=== PATIENT | female | born 1995 | race Caucasian/White ===

== ENCOUNTER 2016-12-27 12:22 | Inpatient (IN) | payer OTHER ==
[2016-12-27 12:49] VITALS: BMI 23.3
--- NOTE | 2016-12-27 13:37 | HP ---
COWS - Scale Resting Pulse: 1= MS 81-100 Sweatin= Chills/Flushing Restless Observation: 1= Difficult to Sit Still Pupil Size: 0= Normal to Room Light Bone or Joint Aches: 2= Severe Diffuse Aches Runny Nose/ Eye Tearin= Runny Nose/Eyes GI Upset > 30mins: 2= Nausea/Diarrhea Tremor Observation: 2= Slight Tremor Visible Yawning Observation: 1= 1-2x During Session Anxiety or Irritability: 2=Irritable/Anxious Goose Flesh Skin: 3=Piloerection COWS Score: 17 Admission ROS S - HPI Chief Complaint: "Getting high has taken a hold of my life and I cannot manage it anymore." Allergies/Adverse Reactions: Allergies Allergy/AdvReac Type Severity Reaction Status Date / Time No Known Allergies Allergy Verified 12/27/16 13:31 History of Present Illness: Pt. is a 21 YO female here to Detox from Heroin. This is her first Detox admission at [facility]. Pt. also reports using Cocaine on a daily basis and using both Alcohol and Xanax several days per week. Exam Limitations: No Limitations - Ebola screening Have you traveled outside of the country in the last 21 days: No Have you had contact with anyone from an Ebola affected area: No Have you been sick,other than usual withdrawal symptoms: No Do you have a fever: No - Review of Systems Constitutional: Chills, Diaphoresis, Fever, Loss of Appetite, Malaise, Night Sweats, Changes in sleep EENT: reports: Tearing, Nose Congestion, Sinus Pressure Respiratory: reports: No Symptoms reported Cardiac: reports: Palpitations, Syncope (Last Occurrence: 07/2016.) GI: reports: Constipated, Nausea, Poor Appetite : reports: Other (Pt. reports passing 3 Kidney stones 3-4 weeks ago. She denies any current Urinary symptoms.) Musculoskeletal: reports: Back Pain, Joint Pain, Muscle Pain, Joint Stiffness Integumentary: reports: Other (Track klein on bilateral forearms.) Neuro: reports: Headache, Numbness, Seizure (Due to withdrawal; Last one: 2015.), Tingling, Tremors Endocrine: reports: No Symptoms Reported Hematology: reports: No Symptoms Reported Psychiatric: reports: Judgement Intact, Mood/Affect Appropiate, Orientated x3, Anxious, Depressed Other Systems: Reviewed and Negative Patient History - Patient Medical History Hx Anemia: No Hx Asthma: No Hx Chronic Obstructive Pulmonary Disease (COPD): No Hx Cancer: No Hx Cardiac Disorders: No Hx Congestive Heart Failure: No Hx Hypertension: No Hx Hypercholesterolemia: No Hx Pacemaker: No HX Cerebrovascular Accident: No Hx Seizures: Yes (Due to Withdrawal; Last One: 06/2016.) Hx Dementia: No Hx Diabetes: No Hx Gastrointestinal Disorders: No Hx Liver Disease: No Hx Genitourinary Disorders: Yes (PCOS.) Hx Sexually Transmitted Disorders: No Hx Renal Disease (ESRD): No (Passed 3 Kidney Stones 3-4 weeks ago.) Hx Thyroid Disease: No Hx Human Immunodeficiency Virus (HIV): No (Last Tested in 10/2016: NEGATIVE.) Hx Hepatitis C: No (Last Tested:05/2016: NEGATIVE.) Hx Depression: Yes (History of meds; stopped taking approx. 1 year ago.) Hx Suicide Attempt: No (PATIENT DENIES CURRENT SI / HI.) Hx Bipolar Disorder: No Hx Schizophrenia: No Other Medical History: Took Keppra for approx. 3 months after last seizure, then stopped by MD. - Patient Surgical History Past Surgical History: No Hx Neurologic Surgery: No Hx Cataract Extraction: No Hx Cardiac Surgery: No Hx Lung Surgery: No Hx Breast Surgery: No Hx Breast Biopsy: No Hx Abdominal Surgery: No Hx Appendectomy: No Hx Cholecystectomy: No Hx Genitourinary Surgery: No Hx Section: No Hx Orthopedic Surgery: No Hx Hysterectomy: No Anesthesia Reaction: No - PPD History Previous Implant?: Yes Documented Results: Negative w/o proof Implanted On Prior R Admission?: No PPD to be Administered?: Yes - Reproductive History Patient is a Female of Child Bearing Age (11 -55 yrs old): Yes Last Menstrual Period: 12/06/16 (History of PCOS.) Patient : No - Smoking Cessation Smoking history: Current every day smoker Have you smoked in the past 12 months: Yes Aproximately how many cigarettes per day: 20 Cigars Per Day: 0 Hx Chewing Tobacco Use: No Initiated information on smoking cessation: Yes 'Breaking Loose' booklet given: 12/27/16 (GIVEN ON UNIT.) - Substance & Tx. History Hx Alcohol Use: Yes (Approx. 4-5 days / week.) Hx Substance Use: Yes Substance Use Type: Cocaine, Heroin, Tranquilizers Hx Substance Use Treatment: Yes (Previous Detox admissions (None at [facility]).) - Substances Abused Heroin Route: Injection Frequency: Daily Amount used: 16 BAGS. Age of first use: 19 Date of Last Use: 12/26/16 Cocaine Route: Injection Frequency: 3-6 times per week Amount used: $ 80. Age of first use: 16 Date of Last Use: 12/25/16 Alprazolam (Xanax) Route: Oral Frequency: 3-6 times per week Amount used: 8 MG Age of first use: 15 Date of Last Use: 12/25/16 Family Disease History - Family Disease History Family History: Denies Admission Physical Exam [facility] - Vital Signs Vital Signs: Vital Signs - 24 hr 12/27/16 12:46 Temperature 98.3 F Pulse Rate 93 H Respiratory 16 Rate Blood Pressure 122/74 - Physical General Appearance: Yes: No Apparent Distress, Nourished, Appropriately Dressed , Tremorous, Anxious HEENTM: Yes: Hearing grossly Normal, Normocephalic, Normal Voice, LORA, Pharynx Normal Respiratory: Yes: Chest Non-Tender, Lungs Clear, Normal Breath Sounds, No Respiratory Distress Neck: Yes: No masses,lesions,Nodules Breast: Yes: Breast Exam Deferred Cardiology: Yes: Regular Rhythm, Regular Rate, S1, S2 Abdominal: Yes: Normal Bowel Sounds, Non Tender, Flat, Soft Genitourinary: Yes: Within Normal Limits Back: Yes: Normal Inspection Musculoskeletal: Yes: full range of Motion, Gait Steady Extremities: Yes: Normal Range of Motion, Non-Tender, Tremors Neurological: Yes: Fully Oriented, Alert, Normal Mood/Affect, Normal Response Integumentary: Yes: Normal Color, Dry, Warm, Track Klein (Present on Bilateral Forearms. 1 Track eb on Left Forearm scabbed and another Track Eb on Left forearm appears slightly swollen (localized, approx. 1/4 inch in diamter). Pt. denies any pain or tenderness at affected sites or anywhere in forearms or hands.) Lymphatic: Yes: Within Normal Limits - Diagnostic (1) Opioid dependence with withdrawal Current Visit: Yes Status: Acute (2) Nicotine dependence Current Visit: Yes Status: Chronic Qualifiers: Nicotine product type: cigarettes Substance use status: uncomplicated Qualified Code(s): F17.210 - Nicotine dependence, cigarettes, uncomplicated (3) Cocaine dependence, uncomplicated Current Visit: Yes Status: Acute (4) Sedative/hypnotic withdrawal without complication Current Visit: Yes Status: Acute (5) Alcohol use Current Visit: Yes Status: Acute Cleared for Admission S - Detox or Rehab [facility] Level of Care: Medically Managed (ADVISED PATIENT TO FOLLOW-UP WITH SCHOOL LUNCH MONITOR / REHAB MEDICAL PROVIDER AFTER DISCHARGE FROM DETOX FOR GENERAL MEDICAL ASSESSMENT.) Detox Regimen/Protocol: Methadone/Valium S Breath Alcohol Content Breath Alcohol Content: 0 Urine Pregancy Test - Result Urine Test Results: Negative- NO Line Present Urine Drug Screen - Results Drug Screen Negative: No Urine Drug Screen Results: MICHELE-Cocaine, OPI-Opiates, MDMA-Ecstasy, BZO- Benzodiazepines, OXY-Oxycodone
[2016-12-27] MEDS ORDERED: MAGNESIUM CITRATE 300 ML BOTTLE PO PRN (14:39)
[2016-12-27] MEDS ORDERED: MENTHOL/PHENOL 1 EACH UD MM PRN (14:39)
[2016-12-27] MEDS ORDERED: NICOTINE POLACRILEX 2 MG GUM BC PRN (14:39)
[2016-12-27] MEDS ORDERED: ACETAMINOPHEN 325 MG TABLET (FP) PO PRN (14:39)
[2016-12-27] MEDS ORDERED: METHADONE HCL 10 MG TABLET (FOR DETOX USE ONLY) PO ONE ×2 (14:39→23:00)
[2016-12-27] MEDS ORDERED: MAG HYDROX/AL HYDROX/SIMETH 30 ML UNIT-DOSE CUP PO PRN (14:39)
[2016-12-27] MEDS ORDERED: MAGNESIUM HYDROX 2400MG/30ML ORAL SUSPENSION 30 ML CUP PO PRN (14:39)
[2016-12-27] MEDS ORDERED: P-EPHED 60MG/TRIPROLIDI 2.5MG TABLET PO PRN (14:39)
[2016-12-27] MEDS ORDERED: diazePAM 5 MG TABLET PO ONE (14:39)
[2016-12-27] MEDS ORDERED: guaiFENesin/D-METHORPHAN HB 10 ML UNIT-DOSE CUPS PO PRN (14:39)
[2016-12-27] MEDS ORDERED: IBUPROFEN 400 MG TABLET (FP) PO PRN (14:39)
[2016-12-27] MEDS ORDERED: LOPERAMIDE HCL 2 MG CAPSULE PO PRN (14:39)
[2016-12-27] MEDS: hydrOXYzine PAMOATE 50 MG CAPSULE (FP) PO PRN (15:24)
[2016-12-27] MEDS: NICOTINE 21 MG/24 HOURS TOPICAL PATCH TD SCH (15:28)
[2016-12-27] MEDS: BACITRACIN 30 GM TUBE TOPICAL OINTMENT TP SCH ×2 (17:35→22:17)
[2016-12-27] MEDS: CYCLOBENZAPRINE HCL 10 MG TABLET (FP) PO PRN ×2 (17:48→22:18)
[2016-12-27 19:21] LABS: URINE APPEARANCE CLOUDY; URINE BILIRUBIN NEGATIVE (NEGATIVE); URINE BLOOD NEGATIVE (NEGATIVE); URINE COLOR YELLOW; URINE GLUCOSE (UA) NEGATIVE (NEGATIVE); URINE KETONE NEGATIVE (NEGATIVE); URINE NITRITE NEGATIVE (NEGATIVE); URINE PROTEIN NEGATIVE (NEGATIVE); URINE UROBILINOGEN NEGATIVE E.U./dl (0.2-1.0)
[2016-12-27 19:42] LABS: URINE LEUK ESTERASE TRACE (NEGATIVE)
[2016-12-27 19:44] LABS: URINE MUCUS MANY; URINE RBC 1 /hpf (0-3); URINE WBC 13 /hpf (3-5)
[2016-12-27] MEDS: diazePAM 5 MG TABLET PO SCH (22:18)
[2016-12-27] MEDS: THIAMINE HCL 100 MG TABLET (FP) PO SCH (22:18)
[2016-12-27] MEDS: diphenhydrAMINE HCL 50 MG CAPSULE PO PRN (22:18)
[2016-12-28] MEDS: diazePAM 5 MG TABLET PO SCH ×3 (05:56→22:30)
--- NOTE | 2016-12-28 09:37 | CONSULT ---
[facility] Psychiatric Consult - Data Date of interview: 12/28/16 Admission source: [facility] Identifying data: This is 21 years old female with history of no psychiatric hospitalizations intoxicated with : Alcohol, Heroin, Cocaine and Nicoptine, Xanax Substance Abuse History: - Smoking Cessation. Smoking history: Current every day smoker. Have you smoked in the past 12 months: Yes. Aproximately how many cigarettes per day: 20. Cigars Per Day: 0. Hx Chewing Tobacco Use: No. Initiated information on smoking cessation: Yes. 'Breaking Loose' booklet given : 12/27/16 (GIVEN ON UNIT.). - Substance & Tx. History. Hx Alcohol Use: Yes ( Approx. 4-5 days / week.). Hx Substance Use: Yes. Substance Use Type: Cocaine , Heroin, Tranquilizers. Hx Substance Use Treatment: Yes (Previous Detox admissions (None at [facility]).). - Substances Abused. Heroin. Route: Injection. Frequency: Daily. Amount used: 16 BAGS. Age of first use: 19. Date of Last Use: 12/26/16. Cocaine. Route: Injection. Frequency: 3-6 times per week. Amount used: $ 80. Age of first use: 16. Date of Last Use: . Alprazolam (Xanax). Route: Oral. Frequency: 3-6 times per week. Amount used: 8 MG. Age of first use: 15. Date of Last Use: 12/25/16 Medical History: Denies Psychiatric History: Denies Physical/Sexual Abuse/Trauma History: Denies Additional Comment: Observation. Detox Unit Care Protocol Mental Status Exam - Mental Status Exam Alert and Oriented to: Person Cognitive Function: Fair Patient Appearance: Unkempt Mood: Sad Affect: Flat Patient Behavior: Sedated Speech Pattern: Delayed Voice Loudness: Mildly Soft/Quiet Thought Process: Circumstantial Thought Disorder: Being Controlled Hallucinations: Denies Suicidal Ideation: Denies Homicidal Ideation: Denies Insight/Judgement: Fair Sleep: Difficulty falling asleep Appetite: Fair Muscle strength/Tone: Mild Hypotonicity Gait/Station: Shuffling Additional Comments: Observation. Detox Unit Care Protocol Psychiatric Findings - Problem List ([place] 1, 2,3) (1) Alcohol use Current Visit: Yes Status: Acute (2) Cocaine dependence, uncomplicated Current Visit: Yes Status: Acute (3) Opioid dependence with withdrawal Current Visit: Yes Status: Acute (4) Sedative/hypnotic withdrawal without complication Current Visit: Yes Status: Acute (5) Nicotine dependence Current Visit: Yes Status: Chronic Qualifiers: Nicotine product type: cigarettes Substance use status: uncomplicated Qualified Code(s): F17.210 - Nicotine dependence, cigarettes, uncomplicated (6) Drug-induced mood disorder Current Visit: Yes Status: Acute - Initial Treatment Plan Initial Treatment Plan: Observation. Detox Unit Care Protocol
[2016-12-28 09:45] LABS: MCH 27.1 pg (25.7-33.7); MCHC 32.8 g/dl (32.0-36.0); MEAN CELL VOLUME 82.7 fl (80-96); MEAN PLT VOLUME 9.2 fl (7.5-11.1); PLATELET COUNT 233 K/MM3 (134-434); RDW 14.5 % (11.6-15.6); WHITE BLOOD COUNT 6.1 K/mm3 (4.0-10.0)
[2016-12-28] MEDS ORDERED: METHADONE HCL 10 MG TABLET (FOR DETOX USE ONLY) PO SCH (10:00)
[2016-12-28 10:15] LABS: ALBUMIN 3.3 g/dl (3.4-5.0); ALK PHOS 94 U/L (45-117); ANION GAP 8 (8-16); BILIRUBIN,TOTAL 0.3 mg/dL (0.2-1.0); CALCIUM 9.5 mg/dL (8.5-10.1); CO2 27 mmol/L (21-32); CREATININE 0.9 mg/dL (0.55-1.02); GLUCOSE,RANDOM 85 mg/dL (74-106); SGOT/AST 14 U/L (15-37); SGPT/ALT 17 U/L (12-78); TOT PROT 6.7 g/dl (6.4-8.2)
--- NOTE | 2016-12-28 10:28 | EKG ---
Test Reason : Blood Pressure : / mmHG Vent. Rate : 084 BPM Atrial Rate : 084 BPM P-R Int : 170 ms QRS Dur : 082 ms QT Int : 374 ms P-R-T Axes : 036 053 035 degrees QTc Int : 441 ms NORMAL SINUS RHYTHM NORMAL ECG NO PREVIOUS ECGS AVAILABLE Confirmed by ROXIE SCHAEFFER MD ([id number]) on 12/28/2016 10:27:43 AM Referred By: Confirmed By:ROXIE SCHAEFFER MD
[2016-12-28] MEDS: PRENATAL VITAMINS W/ FOLIC ACID TABLET (FP) PO SCH (10:29)
[2016-12-28] MEDS: BACITRACIN 30 GM TUBE TOPICAL OINTMENT TP SCH ×4 (10:29→22:30)
[2016-12-28] MEDS: NICOTINE 21 MG/24 HOURS TOPICAL PATCH TD SCH (10:30)
[2016-12-28] MEDS: CYCLOBENZAPRINE HCL 10 MG TABLET (FP) PO PRN ×3 (10:33→22:30)
[2016-12-28] MEDS: diazePAM 5 MG TABLET PO PRN (10:33)
--- NOTE | 2016-12-28 11:36 | PN ---
[facility] CIWA - CIWA Score Nausea/Vomitin Muscle Tremors: 4-Moderate,w/Arms Extend Anxiety: 4-Mod. Anxious/Guarded Agitation: 4-Moderately Restless Paroxysmal Sweats: 3 Orientation: 0-Oriented Tacttile Disturbances: 0-None Auditory Disturbances: 0-None Visual Disturbances: 0-None Headache: 0-None Present CIWA-Ar Total Score: 18 BHS COWS - Scale Resting Pulse: 1= SC 81-100 Sweatin= Chills/Flushing Restless Observation: 1= Difficult to Sit Still Pupil Size: 1= Pupils >than Normal Bone or Joint Aches: 1= Mild Discomfort Runny Nose/ Eye Tearin= Nasal Congestion GI Upset > 30mins: 2= Nausea/Diarrhea Tremor Observation of Outstretched Hands: 2= Slight Tremor Visible Yawning Observation: 1= 1-2x During Session Anxiety or Irritability: 2=Irritable/Anxious Goose Flesh Skin: 3=Piloerection COWS Score: 16 S Progress Note (SOAP) Subjective: nausea, sweats, interrupted sleep, anxiety, tremor Objective: 12/28/16 11:35 Vital Signs - 8 hr 12/28/16 12/28/16 05:07 10:27 Temperature 97.9 F 98.2 F Pulse Rate 82 93 H Respiratory 16 18 Rate Blood Pressure 110/70 108/58 Laboratory Tests 12/27/16 12/28/16 12/28/16 18:50 06:30 06:30 WBC 6.1 RBC 4.59 Hgb 12.5 Hct 37.9 MCV 82.7 MCHC 32.8 RDW 14.5 Plt Count 233 MPV 9.2 Sodium 143 Potassium 4.3 Chloride 108 H Carbon Dioxide 27 Anion Gap 8 BUN 13 Creatinine 0.9 Creat Clearance w eGFR > 60 Random Glucose 85 Calcium 9.5 Total Bilirubin 0.3 AST 14 L ALT 17 Alkaline Phosphatase 94 Total Protein 6.7 Albumin 3.3 L Urine Color Yellow Urine Appearance Cloudy Urine pH 5.0 Ur Specific [place] 1.023 Urine Protein Negative Urine Glucose (UA) Negative Urine Ketones Negative Urine Blood Negative Urine Nitrite Negative Urine Bilirubin Negative Urine Urobilinogen Negative Ur Leukocyte Esterase Trace H Urine RBC 1 Urine WBC 13 Ur Epithelial Cells Many Urine Mucus Many hypoalbuminemia Assessment: 12/28/16 11:35 withdrawal sx, malnutrition/hypoalbumiemia 2/2 substance use Plan: cont detox, fluids, food supplements, encoruage ambulation
[2016-12-28] MEDS: diphenhydrAMINE HCL 50 MG CAPSULE PO PRN (22:30)
[2016-12-28] MEDS: THIAMINE HCL 100 MG TABLET (FP) PO SCH (22:30)
[2016-12-29] MEDS: diazePAM 5 MG TABLET PO PRN ×4 (06:06→13:06)
[2016-12-29] MEDS: PRENATAL VITAMINS W/ FOLIC ACID TABLET (FP) PO SCH (10:41)
[2016-12-29] MEDS: NICOTINE 21 MG/24 HOURS TOPICAL PATCH TD SCH (10:42)
[2016-12-29] MEDS: METHADONE HCL 5 MG TABLET (FOR DETOX USE ONLY) PO SCH (10:42)
[2016-12-29] MEDS: diazePAM 5 MG TABLET PO SCH ×2 (10:42→22:34)
[2016-12-29] MEDS: CYCLOBENZAPRINE HCL 10 MG TABLET (FP) PO PRN ×2 (10:43→22:34)
[2016-12-29] MEDS: BACITRACIN 30 GM TUBE TOPICAL OINTMENT TP SCH ×4 (10:45→22:34)
--- NOTE | 2016-12-29 11:06 | PN ---
[facility] CIWA - CIWA Score Nausea/Vomitin-No Nausea/No Vomiting Muscle Tremors: 4-Moderate,w/Arms Extend Anxiety: 3 Agitation: 4-Moderately Restless Paroxysmal Sweats: 3 Orientation: 0-Oriented Tacttile Disturbances: 0-None Auditory Disturbances: 0-None Visual Disturbances: 0-None Headache: 0-None Present CIWA-Ar Total Score: 14 S COWS - Scale Resting Pulse: 2= [place] 101-120 Sweatin= Chills/Flushing Restless Observation: 0= Sits Still Pupil Size: 0= Normal to Room Light Bone or Joint Aches: 2= Severe Diffuse Aches Runny Nose/ Eye Tearin= Nasal Congestion GI Upset > 30mins: 0= None Tremor Observation of Outstretched Hands: 1= Tremor [place], Not Seen Yawning Observation: 1= 1-2x During Session Anxiety or Irritability: 1=Feels Anxious/Irritable Goose Flesh Skin: 3=Piloerection COWS Score: 12 [facility] Progress Note (SOAP) Subjective: irritable agitation anxiety sweats interrupted sleep body aches Objective: 12/29/16 11:05 Vital Signs Temperature 98.1 F 12/29/16 09:50 Pulse Rate 107 H 12/29/16 09:50 Respiratory Rate 20 12/29/16 09:50 Blood Pressure 109/67 12/29/16 09:50 O2 Sat by Pulse Oximetry (%) Laboratory Tests 12/27/16 12/28/16 12/28/16 18:50 06:30 06:30 WBC 6.1 RBC 4.59 Hgb 12.5 Hct 37.9 MCV 82.7 MCHC 32.8 RDW 14.5 Plt Count 233 MPV 9.2 Sodium 143 Potassium 4.3 Chloride 108 H Carbon Dioxide 27 Anion Gap 8 BUN 13 Creatinine 0.9 Creat Clearance w eGFR > 60 Random Glucose 85 Calcium 9.5 Total Bilirubin 0.3 AST 14 L ALT 17 Alkaline Phosphatase 94 Total Protein 6.7 Albumin 3.3 L Urine Color Yellow Urine Appearance Cloudy Urine pH 5.0 Ur Specific [place] 1.023 Urine Protein Negative Urine Glucose (UA) Negative Urine Ketones Negative Urine Blood Negative Urine Nitrite Negative Urine Bilirubin Negative Urine Urobilinogen Negative Ur Leukocyte Esterase Trace H Urine RBC 1 Urine WBC 13 Ur Epithelial Cells Many Urine Mucus Many RPR Titer Hepatitis C Antibody 12/28/16 12/28/16 06:30 06:30 WBC RBC Hgb Hct MCV MCHC RDW Plt Count MPV Sodium Potassium Chloride Carbon Dioxide Anion Gap BUN Creatinine Creat Clearance w eGFR Random Glucose Calcium Total Bilirubin AST ALT Alkaline Phosphatase Total Protein Albumin Urine Color Urine Appearance Urine pH Ur Specific [place] Urine Protein Urine Glucose (UA) Urine Ketones Urine Blood Urine Nitrite Urine Bilirubin Urine Urobilinogen Ur Leukocyte Esterase Urine RBC Urine WBC Ur Epithelial Cells Urine Mucus RPR Titer Nonreactive Hepatitis C Antibody >11.0 H awake/alert ambulating no acute distress pt was made aware of Hep C result. pt states she knew all along but needed re assurance. pt states will visit her PMD for treatment. Assessment: 12/29/16 11:06 withdrawal sx Plan: continue detox increase fluids
[2016-12-29] MEDS: hydrOXYzine PAMOATE 50 MG CAPSULE (FP) PO PRN (13:03)
[2016-12-29] MEDS: THIAMINE HCL 100 MG TABLET (FP) PO SCH (22:34)
[2016-12-29] MEDS: diphenhydrAMINE HCL 50 MG CAPSULE PO PRN (22:34)
--- NOTE | 2016-12-30 09:32 | DS ---
[facility] Detox Discharge Summary Admission Date: 12/27/16 Discharge Date: 12/30/16 - History Present History: Alcohol Dependence, Cocaine Dependence, Opioid Dependence, Sedative Dependence - Physical Exam Results Vital Signs: Vital Signs Temperature 97.9 F 12/30/16 06:37 Pulse Rate 96 H 12/30/16 06:37 Respiratory Rate 18 12/30/16 06:37 Blood Pressure 113/75 12/30/16 06:37 O2 Sat by Pulse Oximetry (%) - Treatment Hospital Course: Detox Protocol Followed - Medication Discharge Medications: Ambulatory Orders NK [No Known Home Medication] 12/27/16 - Diagnosis (1) Alcohol use Current Visit: Yes Status: Acute (2) Cocaine dependence, uncomplicated Current Visit: Yes Status: Acute (3) Opioid dependence with withdrawal Current Visit: Yes Status: Acute (4) Sedative/hypnotic withdrawal without complication Current Visit: Yes Status: Acute (5) Nicotine dependence Current Visit: Yes Status: Chronic Qualifiers: Nicotine product type: cigarettes Substance use status: uncomplicated Qualified Code(s): F17.210 - Nicotine dependence, cigarettes, uncomplicated - AMA Did Patient Leave Against Medical Advice: Yes (states shes ok and doesn't want to stay)
[2016-12-30] MEDS: PRENATAL VITAMINS W/ FOLIC ACID TABLET (FP) PO SCH (09:48)
[2016-12-30] MEDS: METHADONE HCL 5 MG TABLET (FOR DETOX USE ONLY) PO SCH (09:48)
[2016-12-30] MEDS: diazePAM 5 MG TABLET PO SCH (09:50)
[2016-12-30] MEDS: NICOTINE 21 MG/24 HOURS TOPICAL PATCH TD SCH (09:50)
[2016-12-30] MEDS: BACITRACIN 30 GM TUBE TOPICAL OINTMENT TP SCH (09:50)
[2016-12-30 10:12] VITALS: BP 116/81; PULSE 100; TEMP 97.7
[2016-12-31] MEDS ORDERED: diazePAM 5 MG TABLET PO SCH (10:00)
[2016-12-31] MEDS ORDERED: METHADONE HCL 10 MG TABLET (FOR DETOX USE ONLY) PO SCH (10:00)
[2017-01-01] MEDS ORDERED: METHADONE HCL 5 MG TABLET (FOR DETOX USE ONLY) PO SCH (06:00)
== END 2016-12-30 10:19 | disposition left against medical advice (07) | DRG 894 ==
LOC: YASAS 12:22 → Y6N 14:40
PROVIDERS: ADMIT Internal Medicine; ATTEND Internal Medicine Addiction Medicine
PROC: HZ2ZZZZ Detoxification Services for Substance Abuse Treatment (ICD-10-PCS; principal; 2016-12-30)
DX: F11.23 Opioid dependence with withdrawal (principal); F14.20 Cocaine dependence, uncomplicated; F13.230 Sedative, hypnotic or anxiolytic dependence with withdrawal, uncomplicated; F10.10 Alcohol abuse, uncomplicated; F17.210 Nicotine dependence, cigarettes, uncomplicated; F19.24 Other psychoactive substance dependence with psychoactive substance-induced mood disorder
CPT/HCPCS: 36415; 80053; 81003; 81015; 85027; 86593; 86803; 87522; 93005; 93010

== ENCOUNTER 2017-07-27 19:10 | Inpatient (IN) | payer OTHER ==
[2017-07-27 20:22] VITALS: BMI 22.3
--- NOTE | 2017-07-27 21:20 | HP ---
COWS - Scale Resting Pulse: 1= [place] 81-100 Sweatin= Chills/Flushing Restless Observation: 1= Difficult to Sit Still Pupil Size: 0= Normal to Room Light Bone or Joint Aches: 2= Severe Diffuse Aches Runny Nose/ Eye Tearin= Runny Nose/Eyes GI Upset > 30mins: 1= Stomach Cramp Tremor Observation: 2= Slight Tremor Visible Yawning Observation: 1= 1-2x During Session Anxiety or Irritability: 2=Irritable/Anxious Goose Flesh Skin: 0=Smooth Skin COWS Score: 13 CIWA Score - CIWA Score Nausea/Vomitin-Mild Nausea/No Vomiting Muscle Tremors: 4-Moderate,w/Arms Extend Anxiety: 4-Mod. Anxious/Guarded Agitation: 4-Moderately Restless Paroxysmal Sweats: 1-Minimal Palms Moist Orientation: 0-Oriented Tacttile Disturbances: 0-None Auditory Disturbances: 0-None Visual Disturbances: 0-None Headache: 0-None Present CIWA-Ar Total Score: 14 Admission ROS S - HPI Chief Complaint: withdrawal sx Allergies/Adverse Reactions: Allergies Allergy/AdvReac Type Severity Reaction Status Date / Time No Known Allergies Allergy Verified 12/27/16 14:55 History of Present Illness: 22 years old female with long history of opiate xanax nicotine dependence denies medical issue has bipolar ii is admitted to detox Exam Limitations: No Limitations - Ebola screening Have you traveled outside of the country in the last 21 days: No Have you had contact with anyone from an Ebola affected area: No Have you been sick,other than usual withdrawal symptoms: No Do you have a fever: No - Review of Systems Constitutional: Changes in sleep, Weight Stable EENT: reports: No Symptoms Reported Respiratory: reports: No Symptoms reported Cardiac: reports: No Symptoms Reported GI: reports: Nausea, Poor Fluid Intake, Abdominal cramping : reports: Other (kidney stone "few months ago") Musculoskeletal: reports: Back Pain, Joint Pain, Muscle Pain, Neck Pain Integumentary: reports: Change in Color (hands arms) Neuro: reports: Seizure (last episode 2016 related to xanax withdrawal), Tremors Endocrine: reports: No Symptoms Reported Hematology: reports: No Symptoms Reported Psychiatric: reports: Judgement Intact, Orientated x3, Anxious, Depressed Other Systems: Reviewed and Negative Patient History - Patient Medical History Hx Anemia: No Hx Asthma: No Hx Chronic Obstructive Pulmonary Disease (COPD): No Hx Cancer: No Hx Cardiac Disorders: No Hx Congestive Heart Failure: No Hx Hypertension: No Hx Hypercholesterolemia: No Hx Pacemaker: No HX Cerebrovascular Accident: No Hx Seizures: Yes (2015) Hx Dementia: No Hx Diabetes: No Hx Gastrointestinal Disorders: No Hx Liver Disease: No Hx Genitourinary Disorders: No Hx Sexually Transmitted Disorders: No Hx Renal Disease (ESRD): No Hx Thyroid Disease: No Hx Human Immunodeficiency Virus (HIV): No (Last Tested in 10/2016: NEGATIVE.) Hx Hepatitis C: Yes (Last Tested:05/2016) Hx Depression: Yes Hx Suicide Attempt: No (PATIENT DENIES CURRENT SI / HI.) Hx Bipolar Disorder: No Hx Schizophrenia: No - Patient Surgical History Past Surgical History: No Hx Neurologic Surgery: No Hx Cataract Extraction: No Hx Cardiac Surgery: No Hx Lung Surgery: No Hx Breast Surgery: No Hx Breast Biopsy: No Hx Abdominal Surgery: No Hx Appendectomy: No Hx Cholecystectomy: No Hx Genitourinary Surgery: No Hx Section: No Hx Orthopedic Surgery: No Hx Hysterectomy: No - PPD History Previous Implant?: Yes Documented Results: Negative w/proof Implanted On Prior [facility] Admission?: Yes Date: 12/29/16 PPD to be Administered?: No - Reproductive History Patient is a Female of Child Bearing Age (11 -55 yrs old): Yes Last Menstrual Period: 05/27/17 Patient : No - Smoking Cessation Smoking history: Current every day smoker Have you smoked in the past 12 months: Yes Aproximately how many cigarettes per day: 20 Cigars Per Day: 0 Hx Chewing Tobacco Use: No Initiated information on smoking cessation: Yes 'Breaking Loose' booklet given: 07/27/17 - Substance & Tx. History Hx Alcohol Use: No Hx Substance Use: Yes Substance Use Type: Cocaine, Opiates, Tranquilizers Hx Substance Use Treatment: Yes (12/27-12/30/16 [facility]) - Substances Abused Heroin Route: Injection Frequency: Daily Amount used: 40 bags Age of first use: 16 Date of Last Use: 07/27/17 Alprazolam (Xanax) Route: Oral Frequency: Daily Amount used: 12 mg Age of first use: 14 Date of Last Use: 07/27/17 Cocaine Route: Injection Frequency: Daily Amount used: 2 g Age of first use: 14 Date of Last Use: 07/27/17 Family Disease History - Family Disease History Family Disease History: Respiratory: Mother, Brother Admission Physical Exam [facility] - Vital Signs Vital Signs: Vital Signs - 24 hr 07/27/17 20:20 Temperature 96.1 F L Pulse Rate 83 Respiratory 18 Rate Blood Pressure 127/75 - Physical General Appearance: Yes: Appropriately Dressed, Mild Distress, Thin, Tremorous, Irritable, Sweating, Anxious HEENTM: Yes: Hearing grossly Normal, Normal ENT Inspection, Normocephalic, Normal Voice Respiratory: Yes: Chest Non-Tender, Lungs Clear, Normal Breath Sounds, No Respiratory Distress, No Accessory Muscle Use Neck: Yes: Supple, Trachea in good position Breast: Yes: Breasts Symetrical Cardiology: Yes: Regular Rhythm, Regular Rate, S1, S2 Abdominal: Yes: Non Tender, Soft Genitourinary: Yes: Within Normal Limits Back: Yes: Normal Inspection Musculoskeletal: Yes: full range of Motion, Gait Steady, Back pain, Muscle Pain Extremities: Yes: Normal Range of Motion, Non-Tender, Tremors Neurological: Yes: Fully Oriented, Alert, Motor Strength 5/5, Normal Response, Depressed Affect Integumentary: Yes: Warm, Track Patel Lymphatic: Yes: Within Normal Limits - Diagnostic (1) Cocaine dependence, uncomplicated Current Visit: Yes Status: Chronic (2) Opioid dependence with withdrawal Current Visit: Yes Status: Acute (3) Sedative/hypnotic withdrawal without complication Current Visit: Yes Status: Acute (4) Nicotine dependence Current Visit: Yes Status: Acute Qualifiers: Nicotine product type: cigarettes Substance use status: in withdrawal Qualified Code(s): F17.213 - Nicotine dependence, cigarettes, with withdrawal (5) Hepatitis C Current Visit: Yes Status: Chronic Qualifiers: Viral hepatitis chronicity: carrier Qualified Code(s): B18.2 - Chronic viral hepatitis C Comment: patient agrees to be treated (6) Bipolar II disorder Current Visit: Yes Status: Suspected Cleared for Admission [facility] - Detox or Rehab [facility] Level of Care: Medically Managed Detox Regimen/Protocol: Methadone/Valium [facility] Breath Alcohol Content Breath Alcohol Content: 0 Urine Pregancy Test - Result Urine Test Results: Negative- NO Line Present Urine Drug Screen - Results Drug Screen Negative: No Urine Drug Screen Results: MICHELE-Cocaine, OPI-Opiates, BZO-Benzodiazepines
[2017-07-27] MEDS ORDERED: MAGNESIUM CITRATE 300 ML BOTTLE PO PRN (21:28)
[2017-07-27] MEDS ORDERED: P-EPHED 60MG/TRIPROLIDI 2.5MG TABLET PO PRN (21:28)
[2017-07-27] MEDS ORDERED: LOPERAMIDE HCL 2 MG CAPSULE PO PRN (21:28)
[2017-07-27] MEDS ORDERED: IBUPROFEN 400 MG TABLET (FP) PO PRN (21:28)
[2017-07-27] MEDS ORDERED: ACETAMINOPHEN 325 MG TABLET (FP) PO PRN (21:28)
[2017-07-27] MEDS ORDERED: METHADONE HCL 10 MG TABLET (FOR DETOX USE ONLY) PO ONE ×3 (21:28→23:00)
[2017-07-27] MEDS ORDERED: guaiFENesin/D-METHORPHAN HB 10 ML UNIT-DOSE CUPS PO PRN (21:28)
[2017-07-27] MEDS ORDERED: MENTHOL/PHENOL 1 EACH UD MM PRN (21:28)
[2017-07-27] MEDS ORDERED: MAG HYDROX/AL HYDROX/SIMETH 30 ML UNIT-DOSE CUP PO PRN (21:28)
[2017-07-27] MEDS ORDERED: diazePAM 5 MG TABLET PO ONE (21:28)
[2017-07-27] MEDS ORDERED: MAGNESIUM HYDROX 2400MG/30ML ORAL SUSPENSION 30 ML CUP PO PRN (21:28)
[2017-07-27] MEDS: diazePAM 5 MG TABLET PO SCH (22:38)
[2017-07-27] MEDS: THIAMINE HCL 100 MG TABLET (FP) PO SCH (22:46)
[2017-07-27 23:10] LABS: URINE APPEARANCE CLOUDY; URINE BILIRUBIN NEGATIVE (NEGATIVE); URINE BLOOD NEGATIVE (NEGATIVE); URINE COLOR DKYELLOW; URINE GLUCOSE (UA) NEGATIVE (NEGATIVE); URINE KETONE NEGATIVE (NEGATIVE); URINE NITRITE POSITIVE (NEGATIVE); URINE PROTEIN NEGATIVE (NEGATIVE); URINE UROBILINOGEN NEGATIVE mg/dL (0.2-1.0)
[2017-07-27 23:23] LABS: URINE LEUK ESTERASE 2+ (NEGATIVE)
[2017-07-27 23:33] LABS: CALCIUM OXALATE CRYSTALS RARE /hpf (NONE SEEN); URINE BACTERIA RARE /hpf (NONE SEEN); URINE MUCUS FEW; URINE RBC 3 /hpf (0-3); URINE WBC 47 /hpf (3-5)
[2017-07-28] MEDS: diazePAM 5 MG TABLET PO SCH ×3 (06:01→22:26)
[2017-07-28] MEDS ORDERED: METHADONE HCL 10 MG TABLET (FOR DETOX USE ONLY) PO SCH (10:00)
[2017-07-28 10:02] LABS: MCH 25.9 pg (25.7-33.7); MCHC 32.4 g/dl (32.0-36.0); MEAN CELL VOLUME 79.9 fl (80-96); MEAN PLT VOLUME 9.3 fl (7.5-11.1); PLATELET COUNT 302 K/MM3 (134-434); RDW 14.5 % (11.6-15.6); WHITE BLOOD COUNT 8.5 K/mm3 (4.0-10.0)
--- NOTE | 2017-07-28 10:13 | CONSULT ---
[facility] Psychiatric Consult - Data Additional Comment: DUPLICATE. SEE CHART DATED 07/28/2017 Psychiatric Findings - Problem List ([place] 1, 2,3) (1) Nicotine dependence Status: Acute Qualifiers: Nicotine product type: cigarettes Substance use status: in withdrawal Qualified Code(s): F17.213 - Nicotine dependence, cigarettes, with withdrawal (2) Opioid dependence with withdrawal Status: Acute (3) Sedative/hypnotic withdrawal without complication Status: Acute (4) Cocaine dependence, uncomplicated Status: Chronic (5) Hepatitis C Status: Chronic Qualifiers: Viral hepatitis chronicity: carrier Qualified Code(s): B18.2 - Chronic viral hepatitis C Comment: patient agrees to be treated (6) Bipolar II disorder Status: Suspected (7) Drug-induced mood disorder Status: Acute
--- NOTE | 2017-07-28 10:17 | CONSULT ---
[facility] Psychiatric Consult - Data Date of interview: 07/28/17 Admission source: [facility] Identifying data: This ios 22 years old female with no psychiatric hospitalization history intoxi cated with: Cocaine, Xanax , Heroin and Nicotine Substance Abuse History: - Smoking Cessation. Smoking history: Current every day smoker. Have you smoked in the past 12 months: Yes. Aproximately how many cigarettes per day: 20. Cigars Per Day: 0. Hx Chewing Tobacco Use: No. Initiated information on smoking cessation: Yes. 'Breaking Loose' booklet given : 07/27/17. - Substance & Tx. History. Hx Alcohol Use: No. Hx Substance Use: Yes. Substance Use Type: Cocaine, Opiates, Tranquilizers. Hx Substance Use Treatment: Yes (12/27-12/30/16 [facility]). - Substances Abused. Heroin. Route : Injection. Frequency: Daily. Amount used: 40 bags. Age of first use: 16. Date of Last Use: 07/27/17. Alprazolam (Xanax). Route: Oral. Frequency: Daily. Amount used: 12 mg. Age of first use: 14. Date of Last Use: 07/27/17. Cocaine. Route: Injection. Frequency: Daily. Amount used: 2 g. Age of first use: 14. Date of Last Use: 07/27/17 Medical History: HepC+ Psychiatric History: Patient reports history of Bipolar II Disorder, reports no medicoatopns taking prior to admission Physical/Sexual Abuse/Trauma History: Unclear Additional Comment: Observation. Detox Unit Care Protocol Mental Status Exam - Mental Status Exam Alert and Oriented to: Person Cognitive Function: Fair Patient Appearance: Unkempt Mood: Sad Affect: Flat Patient Behavior: Sedated Speech Pattern: Delayed Voice Loudness: Mildly Soft/Quiet Thought Process: Circumstantial Thought Disorder: Being Controlled Hallucinations: Denies Suicidal Ideation: Denies Homicidal Ideation: Denies Insight/Judgement: Fair Sleep: Difficulty falling asleep Appetite: Weight loss Muscle strength/Tone: Mild Hypotonicity Gait/Station: Shuffling Additional Comments: Observation. Detox Unit Care Protocol Psychiatric Findings - Problem List ([place] 1, 2,3) (1) Nicotine dependence Current Visit: Yes Status: Acute Qualifiers: Nicotine product type: cigarettes Substance use status: in withdrawal Qualified Code(s): F17.213 - Nicotine dependence, cigarettes, with withdrawal (2) Opioid dependence with withdrawal Current Visit: Yes Status: Acute (3) Sedative/hypnotic withdrawal without complication Current Visit: Yes Status: Acute (4) Cocaine dependence, uncomplicated Current Visit: Yes Status: Chronic (5) Hepatitis C Current Visit: Yes Status: Chronic Qualifiers: Viral hepatitis chronicity: carrier Qualified Code(s): B18.2 - Chronic viral hepatitis C Comment: patient agrees to be treated (6) Bipolar II disorder Current Visit: Yes Status: Suspected (7) Drug-induced mood disorder Current Visit: No Status: Acute - Initial Treatment Plan Initial Treatment Plan: Observation. Detox Unit Care Protocol
[2017-07-28 10:33] LABS: ALBUMIN 3.4 g/dl (3.4-5.0); CALCIUM 9.4 mg/dL (8.5-10.1); GLUCOSE,RANDOM 85 mg/dL (74-106); SGOT/AST 13 U/L (15-37); SGPT/ALT 21 U/L (12-78)
[2017-07-28 10:36] LABS: ALK PHOS 99 U/L (45-117); ANION GAP 4 (8-16); BILIRUBIN,TOTAL 0.2 mg/dL (0.2-1.0); CO2 31 mmol/L (21-32); CREATININE 0.9 mg/dL (0.55-1.02); TOT PROT 6.4 g/dl (6.4-8.2)
[2017-07-28] MEDS: diazePAM 5 MG TABLET PO PRN ×2 (10:46→17:08)
[2017-07-28] MEDS: PRENATAL VITAMINS W/ FOLIC ACID TABLET (FP) PO SCH (10:47)
[2017-07-28] MEDS: NICOTINE 21 MG/24 HOURS TOPICAL PATCH TD SCH (10:48)
--- NOTE | 2017-07-28 11:32 | PN ---
[facility] CIWA - CIWA Score Nausea/Vomitin-No Nausea/No Vomiting Muscle Tremors: 3 Anxiety: 2 Agitation: 4-Moderately Restless Paroxysmal Sweats: 3 Orientation: 0-Oriented Tacttile Disturbances: 0-None Auditory Disturbances: 0-None Visual Disturbances: 0-None Headache: 0-None Present CIWA-Ar Total Score: 12 [facility] COWS - Scale Resting Pulse: 1= [place] 81-100 Sweatin=Flushed/Facial Moisture Restless Observation: 1= Difficult to Sit Still Pupil Size: 0= Normal to Room Light Bone or Joint Aches: 2= Severe Diffuse Aches Runny Nose/ Eye Tearin= Nasal Congestion GI Upset > 30mins: 0= None Tremor Observation of Outstretched Hands: 2= Slight Tremor Visible Yawning Observation: 1= 1-2x During Session Anxiety or Irritability: 2=Irritable/Anxious Goose Flesh Skin: 0=Smooth Skin COWS Score: 12 [facility] Progress Note (SOAP) Subjective: sweats shakes interrupted sleep anxiety body aches Objective: 07/28/17 11:28 Vital Signs Temperature 97.1 F L 07/28/17 10:20 Pulse Rate 90 07/28/17 10:20 Respiratory Rate 18 07/28/17 10:20 Blood Pressure 102/65 07/28/17 10:20 O2 Sat by Pulse Oximetry (%) Laboratory Tests 07/27/17 07/28/17 07/28/17 22:40 07:00 07:00 WBC 8.5 D RBC 4.51 Hgb 11.7 Hct 36.1 MCV 79.9 L MCH 25.9 MCHC 32.4 RDW 14.5 Plt Count 302 D MPV 9.3 Sodium 141 Potassium 4.9 Chloride 106 Carbon Dioxide 31 Anion Gap 4 L BUN 16 D Creatinine 0.9 Creat Clearance w eGFR > 60 Random Glucose 85 Calcium 9.4 Total Bilirubin 0.2 D AST 13 L ALT 21 D Alkaline Phosphatase 99 Total Protein 6.4 Albumin 3.4 Urine Color Dkyellow Urine Appearance Cloudy Urine pH 6.0 Ur Specific [place] 1.025 Urine Protein Negative Urine Glucose (UA) Negative Urine Ketones Negative Urine Blood Negative Urine Nitrite Positive Urine Bilirubin Negative Urine Urobilinogen Negative Ur Leukocyte Esterase 2+ H D Urine RBC 3 Urine WBC 47 Ur Epithelial Cells Few Calcium Oxalate Crystal Rare Urine Bacteria Rare Urine Mucus Few awake/alert ambulating no acute distress Assessment: 07/28/17 11:29 withdrawal sx Plan: continue detox increase fluids
--- NOTE | 2017-07-28 12:42 | EKG ---
Test Reason : Blood Pressure : / mmHG Vent. Rate : 084 BPM Atrial Rate : 084 BPM P-R Int : 180 ms QRS Dur : 088 ms QT Int : 382 ms P-R-T Axes : 033 060 050 degrees QTc Int : 451 ms NORMAL SINUS RHYTHM NORMAL ECG WHEN COMPARED WITH ECG OF 27-DEC-2016 15:31, NO SIGNIFICANT CHANGE WAS FOUND Confirmed by PAOLO DUNNE MD ([id number]) on 07/28/2017 12:42:35 PM Referred By: Confirmed By:PAOLO DUNNE MD
[2017-07-28] MEDS: NICOTINE POLACRILEX 4 MG GUM BUC PRN ×2 (15:05→19:53)
[2017-07-28] MEDS: diphenhydrAMINE HCL 50 MG CAPSULE PO PRN (22:26)
[2017-07-28] MEDS: THIAMINE HCL 100 MG TABLET (FP) PO SCH (22:26)
[2017-07-29] MEDS: diazePAM 5 MG TABLET PO PRN ×3 (05:33→20:03)
[2017-07-29] MEDS: diazePAM 5 MG TABLET PO SCH ×2 (10:39→22:24)
[2017-07-29] MEDS: METHADONE HCL 5 MG TABLET (FOR DETOX USE ONLY) PO SCH (10:39)
[2017-07-29] MEDS: PRENATAL VITAMINS W/ FOLIC ACID TABLET (FP) PO SCH (10:40)
[2017-07-29] MEDS: NICOTINE 21 MG/24 HOURS TOPICAL PATCH TD SCH (10:41)
[2017-07-29] MEDS: NICOTINE POLACRILEX 4 MG GUM BUC PRN ×2 (10:42→15:25)
--- NOTE | 2017-07-29 10:59 | PN ---
[facility] CIWA - CIWA Score Nausea/Vomitin-No Nausea/No Vomiting Muscle Tremors: 3 Anxiety: 2 Agitation: 3 Paroxysmal Sweats: 3 Orientation: 0-Oriented Tacttile Disturbances: 0-None Auditory Disturbances: 0-None Visual Disturbances: 0-None Headache: 0-None Present CIWA-Ar Total Score: 11 [facility] COWS - Scale Resting Pulse: 0= IN 80 or Below Sweatin=Flushed/Facial Moisture Restless Observation: 1= Difficult to Sit Still Pupil Size: 0= Normal to Room Light Bone or Joint Aches: 2= Severe Diffuse Aches Runny Nose/ Eye Tearin= Nasal Congestion GI Upset > 30mins: 0= None Tremor Observation of Outstretched Hands: 1= Tremor [place], Not Seen Yawning Observation: 1= 1-2x During Session Anxiety or Irritability: 1=Feels Anxious/Irritable Goose Flesh Skin: 3=Piloerection COWS Score: 12 S Progress Note (SOAP) Subjective: sweats shakes interrupted sleep agitation Objective: 07/29/17 10:58 Vital Signs Temperature 99.0 F 07/29/17 06:49 Pulse Rate 78 07/29/17 09:42 Respiratory Rate 20 07/29/17 09:42 Blood Pressure 110/65 07/29/17 09:42 O2 Sat by Pulse Oximetry (%) Laboratory Tests 07/27/17 07/28/17 07/28/17 22:40 07:00 07:00 WBC 8.5 D RBC 4.51 Hgb 11.7 Hct 36.1 MCV 79.9 L MCH 25.9 MCHC 32.4 RDW 14.5 Plt Count 302 D MPV 9.3 Sodium 141 Potassium 4.9 Chloride 106 Carbon Dioxide 31 Anion Gap 4 L BUN 16 D Creatinine 0.9 Creat Clearance w eGFR > 60 Random Glucose 85 Calcium 9.4 Total Bilirubin 0.2 D AST 13 L ALT 21 D Alkaline Phosphatase 99 Total Protein 6.4 Albumin 3.4 Urine Color Dkyellow Urine Appearance Cloudy Urine pH 6.0 Ur Specific [place] 1.025 Urine Protein Negative Urine Glucose (UA) Negative Urine Ketones Negative Urine Blood Negative Urine Nitrite Positive Urine Bilirubin Negative Urine Urobilinogen Negative Ur Leukocyte Esterase 2+ H D Urine RBC 3 Urine WBC 47 Ur Epithelial Cells Few Calcium Oxalate Crystal Rare Urine Bacteria Rare Urine Mucus Few RPR Titer 07/28/17 07:00 WBC RBC Hgb Hct MCV MCH MCHC RDW Plt Count MPV Sodium Potassium Chloride Carbon Dioxide Anion Gap BUN Creatinine Creat Clearance w eGFR Random Glucose Calcium Total Bilirubin AST ALT Alkaline Phosphatase Total Protein Albumin Urine Color Urine Appearance Urine pH Ur Specific [place] Urine Protein Urine Glucose (UA) Urine Ketones Urine Blood Urine Nitrite Urine Bilirubin Urine Urobilinogen Ur Leukocyte Esterase Urine RBC Urine WBC Ur Epithelial Cells Calcium Oxalate Crystal Urine Bacteria Urine Mucus RPR Titer Nonreactive awake/alert ambulating no acute distress Assessment: 07/29/17 10:59 withdrawal sx Plan: continue detox increase fluids
[2017-07-29] MEDS: THIAMINE HCL 100 MG TABLET (FP) PO SCH (22:23)
[2017-07-29] MEDS: diphenhydrAMINE HCL 50 MG CAPSULE PO PRN (22:23)
[2017-07-30] MEDS: METHADONE HCL 5 MG TABLET (FOR DETOX USE ONLY) PO SCH (10:47)
[2017-07-30] MEDS: PRENATAL VITAMINS W/ FOLIC ACID TABLET (FP) PO SCH (10:47)
[2017-07-30] MEDS: NICOTINE 21 MG/24 HOURS TOPICAL PATCH TD SCH (10:47)
[2017-07-30] MEDS: diazePAM 5 MG TABLET PO SCH (10:47)
[2017-07-30] MEDS: NICOTINE POLACRILEX 2 MG GUM BUC PRN ×3 (11:10→17:20)
--- NOTE | 2017-07-30 11:31 | PN ---
[facility] Progress Note (SOAP) Subjective: I want 2mg nicotine not 4mg sweats chills interrupted sleep Objective: 07/30/17 11:29 Vital Signs Temperature 97.5 F L 07/30/17 10:45 Pulse Rate 87 07/30/17 10:45 Respiratory Rate 16 07/30/17 10:45 Blood Pressure 111/53 07/30/17 10:45 O2 Sat by Pulse Oximetry (%) awake/alert ambulating no acute distress Assessment: 07/30/17 11:30 withdrawal sx Plan: continue detox increase fluids nicotine 4mg changed to 2mg as per pt request
[2017-07-30] MEDS: diazePAM 5 MG TABLET PO PRN (13:42)
[2017-07-30] MEDS ORDERED: CYCLOBENZAPRINE HCL 10 MG TABLET (FP) PO ONE (18:33)
[2017-07-30 18:35] VITALS: BP 106/58; PULSE 81; TEMP 97.9
--- NOTE | 2017-07-30 19:24 | DS ---
[facility] Detox Discharge Summary Admission Date: 07/27/17 Discharge Date: 07/30/17 - History Present History: Alcohol Dependence, Cocaine Dependence, Opioid Dependence, Sedative Dependence Additional Comments: PATIENT REFUSES TO WAIT FACE TO FACE WITH THE PROVIDER Pertinent Past History: HEPATITIS C NICOTINE DEPENDENCE - Physical Exam Results Vital Signs: Vital Signs Temperature 97.9 F 07/30/17 18:34 Pulse Rate 81 07/30/17 18:34 Respiratory Rate 16 07/30/17 18:34 Blood Pressure 106/58 07/30/17 18:34 O2 Sat by Pulse Oximetry (%) Pertinent Admission Physical Exam Findings: WITHDRAWAL SX Laboratory Last Values WBC 8.5 K/mm3 (4.0-10.0) D 07/28/17 07:00 RBC 4.51 M/mm3 (3.60-5.2) 07/28/17 07:00 Hgb 11.7 GM/dL (10.7-15.3) 07/28/17 07:00 Hct 36.1 % (32.4-45.2) 07/28/17 07:00 MCV 79.9 fl (80-96) L 07/28/17 07:00 MCH 25.9 pg (25.7-33.7) 07/28/17 07:00 MCHC 32.4 g/dl (32.0-36.0) 07/28/17 07:00 RDW 14.5 % (11.6-15.6) 07/28/17 07:00 Plt Count 302 K/MM3 (134-434) D 07/28/17 07:00 MPV 9.3 fl (7.5-11.1) 07/28/17 07:00 Sodium 141 mmol/L (136-145) 07/28/17 07:00 Potassium 4.9 mmol/L (3.5-5.1) 07/28/17 07:00 Chloride 106 mmol/L (98-107) 07/28/17 07:00 Carbon Dioxide 31 mmol/L (21-32) 07/28/17 07:00 Anion Gap 4 (8-16) L 07/28/17 07:00 BUN 16 mg/dL (7-18) D 07/28/17 07:00 Creatinine 0.9 mg/dL (0.55-1.02) 07/28/17 07:00 Creat Clearance w eGFR > 60 (>60) 07/28/17 07:00 Random Glucose 85 mg/dL (74-106) 07/28/17 07:00 Calcium 9.4 mg/dL (8.5-10.1) 07/28/17 07:00 Total Bilirubin 0.2 mg/dL (0.2-1.0) D 07/28/17 07:00 AST 13 U/L (15-37) L 07/28/17 07:00 ALT 21 U/L (12-78) D 07/28/17 07:00 Alkaline Phosphatase 99 U/L (45-117) 07/28/17 07:00 Total Protein 6.4 g/dl (6.4-8.2) 07/28/17 07:00 Albumin 3.4 g/dl (3.4-5.0) 07/28/17 07:00 Urine Color Dkyellow 07/27/17 22:40 Urine Appearance Cloudy 07/27/17 22:40 Urine pH 6.0 (5.0-8.0) 07/27/17 22:40 Ur Specific [place] 1.025 (1.005-1.025) 07/27/17 22:40 Urine Protein Negative (NEGATIVE) 07/27/17 22:40 Urine Glucose (UA) Negative (NEGATIVE) 07/27/17 22:40 Urine Ketones Negative (NEGATIVE) 07/27/17 22:40 Urine Blood Negative (NEGATIVE) 07/27/17 22:40 Urine Nitrite Positive (NEGATIVE) 07/27/17 22:40 Urine Bilirubin Negative (NEGATIVE) 07/27/17 22:40 Urine Urobilinogen Negative mg/dL (0.2-1.0) 07/27/17 22:40 Ur Leukocyte Esterase 2+ (NEGATIVE) H D 07/27/17 22:40 Urine RBC 3 /hpf (0-3) 07/27/17 22:40 Urine WBC 47 /hpf (3-5) 07/27/17 22:40 Ur Epithelial Cells Few /hpf (FEW) 07/27/17 22:40 Calcium Oxalate Crystal Rare /hpf (NONE SEEN) 07/27/17 22:40 Urine Bacteria Rare /hpf (NONE SEEN) 07/27/17 22:40 Urine Mucus Few 07/27/17 22:40 RPR Titer Nonreactive (NONREACTIVE) 07/28/17 07:00 LAB NOTED - Treatment Hospital Course: Detox Protocol Followed, Responded well - Medication Discharge Medications: Ambulatory Orders NK [No Known Home Medication] 12/27/16 - Diagnosis (1) Cocaine dependence, uncomplicated Status: Chronic (2) Opioid dependence with withdrawal Status: Acute (3) Sedative/hypnotic withdrawal without complication Status: Acute (4) Nicotine dependence Status: Acute Qualifiers: Nicotine product type: cigarettes Substance use status: in withdrawal Qualified Code(s): F17.213 - Nicotine dependence, cigarettes, with withdrawal (5) Hepatitis C Status: Chronic Qualifiers: Viral hepatitis chronicity: carrier Qualified Code(s): B18.2 - Chronic viral hepatitis C (6) Bipolar II disorder Status: Suspected - AMA Did Patient Leave Against Medical Advice: Yes
[2017-07-31] MEDS ORDERED: diazePAM 5 MG TABLET PO SCH (10:00)
[2017-07-31] MEDS ORDERED: METHADONE HCL 10 MG TABLET (FOR DETOX USE ONLY) PO SCH (10:00)
[2017-08-01] MEDS ORDERED: METHADONE HCL 5 MG TABLET (FOR DETOX USE ONLY) PO SCH (06:00)
== END 2017-07-30 19:00 | disposition left against medical advice (07) | DRG 894 ==
LOC: YASAS 19:10 → Y6N 21:21
PROVIDERS: ADMIT Internal Medicine Addiction Medicine; ATTEND Internal Medicine
PROC: HZ2ZZZZ Detoxification Services for Substance Abuse Treatment (ICD-10-PCS; principal; 2017-07-30)
DX: F11.23 Opioid dependence with withdrawal (principal); F14.20 Cocaine dependence, uncomplicated; F31.81 Bipolar II disorder; F13.230 Sedative, hypnotic or anxiolytic dependence with withdrawal, uncomplicated; F17.213 Nicotine dependence, cigarettes, with withdrawal; F19.24 Other psychoactive substance dependence with psychoactive substance-induced mood disorder; B18.2 Chronic viral hepatitis C; Z86.69 Personal history of other diseases of the nervous system and sense organs
CPT/HCPCS: 36415; 80053; 81003; 81015; 85027; 86593; 93005; 93010

== ENCOUNTER 2024-05-25 19:27 | Inpatient (IN) | payer OTHER ==
[2024-05-25] MEDS ORDERED: PIPERACILLIN/TAZOB 4.5 GM 4.5 GM/100 ML BAG IVPB ONE (23:13)
[2024-05-25] MEDS ORDERED: VANCOMYCIN 1 GRAM (PRE-DOCKED) 1,000 MG/250 ML BAG IVPB ONE (23:13)
[2024-05-25 23:27] LABS: BASO % 0.6 % (0-2.0); EOS % 2.6 % (0-4.5); HEMATOCRIT 22.2 % (32.4-45.2); MCHC 31.1 g/dl (32.0-36.0); MEAN PLT VOLUME 8.5 fl (7.5-11.1); MONO % 5.8 % (3.8-10.2); PLATELET COUNT 305 10^3/uL (134-434); RBC 3.64 M/mm3 (3.60-5.2); RDW 19.1 % (11.6-15.6); WHITE BLOOD COUNT 9.5 K/mm3 (4.0-10.0)
[2024-05-25] MEDS: SODIUM CHLORIDE 0.9% 500 ML INFUS.BAG IV ONE (23:27)
[2024-05-25] MEDS: PIPERACILLIN/TAZOB 4.5 GM 4.5 GM in DEXTROSE 5%-WATER 100 ML IVPB ONE (23:27)
[2024-05-25 23:31] LABS: HEMOGLOBIN 6.9 GM/dL (10.7-15.3)
[2024-05-25 23:38] LABS: INR 1.04 (0.83-1.09)
[2024-05-25 23:41] LABS: ACTIVATED PTT 32.4 SECONDS (25.2-36.5)
[2024-05-25 23:53] LABS: POTASSIUM 3.5 mmol/L (3.5-5.1)
[2024-05-25] MEDS: VANCOMYCIN 1,000 MG in DEXTROSE 5%-WATER - 250 ML IVPB ONE (23:54)
[2024-05-25 23:55] LABS: BLOOD UREA NITROGEN 9.5 mg/dL (7-18); CALCIUM 8.7 mg/dL (8.5-10.1); MAGNESIUM 1.7 mg/dL (1.8-2.4)
[2024-05-25 23:59] LABS: CREATININE 0.9 mg/dL (0.55-1.3)
[2024-05-26] LABS: BILIRUBIN,TOTAL 0.2 mg/dL (0.2-1); TOT PROT 7.2 g/dl (6.4-8.2)
[2024-05-26 01:49] LABS: ANISOCYTOSIS 3+; MACROCYTOSIS 0; OVALOCYTE 1+; ROULEAU 1+
[2024-05-26] MEDS ORDERED: MAG HYDROX/AL HYDROX/SIMETH 30 ML UNIT-DOSE CUP PO PRN (05:28)
[2024-05-26] MEDS ORDERED: BISMUTH SUBSALICYLATE 524 MG/30 ML PO PRN (05:28)
[2024-05-26] MEDS ORDERED: POLYETHYLENE GLYCOL (HEALTHYLAX) 3350 17 GM PACKET PO PRN (05:28)
[2024-05-26] MEDS ORDERED: hydrOXYzine PAMOATE 25 MG CAPSULE (FP) PO PRN (05:28)
[2024-05-26] MEDS ORDERED: DICYCLOMINE HCL 10 MG CAPSULE PO PRN (05:28)
[2024-05-26] MEDS ORDERED: LOPERAMIDE HCL 2 MG CAPSULE PO PRN (05:28)
[2024-05-26] MEDS ORDERED: ACETAMINOPHEN 325 MG TABLET (FP) PO PRN (08:27)
[2024-05-26] MEDS ORDERED: MAGNESIUM SULFATE IN WATER 2 GM/50 ML IVPB IVPB ONE (08:37)
[2024-05-26] MEDS: MAGNESIUM SULF 50% (8.12 MEQ/2 ML-1 GM VIAL) IVPB ONE (08:58)
[2024-05-26] MEDS ORDERED: VANCOMYCIN 1,000 MG in DEXTROSE 5%-WATER - 250 ML IVPB SCH (10:00)
[2024-05-26] MEDS ORDERED: PIPERACILLIN/TAZOB 3.375 GM 3.375 GM in DEXTROSE 5%-WATER - 50 ML IVPB SCH (10:00)
[2024-05-26] MEDS: ENOXAPARIN NA (PORCINE) 40 MG/0.4 ML DISP.SYRIN SQ SCH (12:02)
[2024-05-26] MEDS: NICOTINE 21 MG/24 HOURS TOPICAL PATCH TD SCH (12:03)
[2024-05-26] MEDS: PIPERACILLIN/TAZOB 3.375 GM 3.375 GM in DEXTROSE 5%-WATER - 50 ML IVPB SCH ×2 (12:03→18:31)
[2024-05-26 13:37] VITALS: BMI 23.2
[2024-05-26] MEDS: cloNIDine HCL 0.1 MG TABLET PO ONE (14:45)
[2024-05-26] MEDS: methaDONE HCL 10 MG TABLET PO ONE (16:35)
[2024-05-26] MEDS: VANCOMYCIN/WATER FOR INJ (PEG) 1,000 MG/200 ML BAG IVPB SCH (16:36)
[2024-05-26] MEDS ORDERED: NICOTINE POLACRILEX 2 MG GUM BUC PRN (17:59)
[2024-05-26] MEDS ORDERED: guaiFENesin 600 MG TABLET.ER (FP) PO PRN (17:59)
[2024-05-26] MEDS ORDERED: METHOCARBAMOL 500 MG TABLET PO PRN (17:59)
[2024-05-26] MEDS ORDERED: IBUPROFEN 400 MG TABLET (FP) PO PRN (17:59)
[2024-05-26] MEDS ORDERED: NICOTINE POLACRILEX 2 MG LOZENGE BC PRN (17:59)
[2024-05-26] MEDS ORDERED: BENZONATATE 200 MG CAPSULE PO PRN (17:59)
[2024-05-26] MEDS ORDERED: ONDANSETRON *ODT* 4 MG TABLET SL PRN (17:59)
[2024-05-26] MEDS ORDERED: IBUPROFEN 600 MG TABLET (FP) PO PRN (17:59)
[2024-05-26] MEDS ORDERED: BENZOCAINE/MENTHOL (CHLORASEPTIC ) LOZENGE MM PRN (17:59)
[2024-05-26] MEDS ORDERED: diazePAM 5 MG TABLET PO PRN (18:26)
[2024-05-26] MEDS: THIAMINE 100 MG TABLET PO SCH (22:31)
[2024-05-26] MEDS: cloNIDine HCL 0.1 MG TABLET PO PRN (22:31)
[2024-05-26] MEDS: MELATONIN 5 MG TABLETS PO SCH (22:31)
[2024-05-26] MEDS: diazePAM 5 MG TABLET PO SCH (22:58)
[2024-05-27] MEDS ORDERED: VANCOMYCIN 1 GRAM (PRE-DOCKED) 1,000 MG/250 ML BAG IVPB SCH
[2024-05-27] MEDS: PRENATAL VITAMINS W/ FOLIC ACID TABLET (FP) PO SCH (10:40)
[2024-05-27] MEDS ORDERED: LIDOCAINE HCL 1%, 10 MG/ML (20ML VIAL) ONE (18:03)
[2024-05-27] MEDS: LIDOCAINE HCL/PF 2% SDV 5ML VIAL SQ ONE (18:42)
[2024-05-27] MEDS: MAGNESIUM HYDROX 2400MG/30ML ORAL SUSPENSION 30 ML CUP PO PRN (22:26)
[2024-05-28] MEDS: diazePAM 5 MG TABLET PO SCH (06:13)
[2024-05-28] MEDS: FERROUS SO4 325 MG TABLET (FP) PO SCH (10:55)
[2024-05-28] MEDS: methaDONE HCL 10 MG TABLET PO ONE (10:55)
[2024-05-28 13:57] VITALS: BP 131/72; PULSE 102; RESP 18; TEMP 97.7
[2024-05-29] MEDS ORDERED: diazePAM 5 MG TABLET PO SCH (06:00)
[2024-05-30] MEDS ORDERED: diazePAM 5 MG TABLET PO ONE (06:00)
[2024-05-30] MEDS ORDERED: methaDONE HCL 10 MG TABLET PO ONE (10:00)
== END 2024-05-28 16:50 | disposition left against medical advice (07) | DRG 383 ==
LOC: JER 19:27 → JERBED 23:24 → J8W 05-26 09:42 → OBSVTOIN 05-28 11:37
PROVIDERS: ADMIT Internal Medicine; ATTEND Internal Medicine
PROC: 30233N1 Transfusion of Nonautologous Red Blood Cells into Peripheral Vein, Percutaneous Approach (ICD-10-PCS; 2024-05-26)
PROC: 05HD33Z Insertion of Infusion Device into Right Cephalic Vein, Percutaneous Approach (ICD-10-PCS; principal; 2024-05-28)
PROC: B54MZZA Ultrasonography of Right Upper Extremity Veins, Guidance (ICD-10-PCS; 2024-05-28)
DX: L02.413 Cutaneous abscess of right upper limb (principal); A49.02 Methicillin resistant Staphylococcus aureus infection, unspecified site; L08.9 Local infection of the skin and subcutaneous tissue, unspecified; L02.416 Cutaneous abscess of left lower limb; L02.415 Cutaneous abscess of right lower limb; F11.23 Opioid dependence with withdrawal; F13.239 Sedative, hypnotic or anxiolytic dependence with withdrawal, unspecified; F17.210 Nicotine dependence, cigarettes, uncomplicated; E83.42 Hypomagnesemia; D50.9 Iron deficiency anemia, unspecified; K59.00 Constipation, unspecified; F32.A Depression, unspecified; N92.0 Excessive and frequent menstruation with regular cycle; M62.838 Other muscle spasm; Z59.00 Homelessness unspecified
CPT/HCPCS: 36415; 36430; 73701-TC-RT; 80053; 82728; 83540; 83550; 83735; 84703; 85025; 85610; 85651; 85730; 86140; 86850; 86900; 86901; 86922; 87040; 87070; 87077; 87081; 87186; 87205; 93005; 93010; 99285-25; G0378; P9058

== ENCOUNTER 2024-05-28 17:32 | Inpatient (IN) | payer OTHER ==
[2024-05-28 17:41] VITALS: RESP 20
[2024-05-28 18:44] LABS: BASO % 0.9 % (0-2.0); EOS % 3.3 % (0-4.5); HEMATOCRIT 25.3 % (32.4-45.2); LYMPH % 31.7 % (8-40); MCHC 31.8 g/dl (32.0-36.0); MEAN CELL VOLUME 62.8 fl (80-96); MEAN PLT VOLUME 8.4 fl (7.5-11.1); MONO % 7.9 % (3.8-10.2); NEUT % 56.2 % (42.8-82.8); PLATELET COUNT 341 10^3/uL (134-434); RBC 4.04 M/mm3 (3.60-5.2); RDW 21.1 % (11.6-15.6); WHITE BLOOD COUNT 7.2 K/mm3 (4.0-10.0)
[2024-05-28] MEDS ORDERED: PIPERACILLIN/TAZOB 3.375 GM 3.375 GM/50 ML BAG IVPB ONE (18:44)
[2024-05-28 18:52] LABS: MCH 19.9 pg (25.7-33.7)
[2024-05-28] MEDS: PIPERACILLIN/TAZOB 3.375 GM 3.375 GM in DEXTROSE 5%-WATER - 50 ML IVPB ONE (18:53)
[2024-05-28 19:01] LABS: CALCIUM 9.1 mg/dL (8.5-10.1)
[2024-05-28 19:04] LABS: CREATININE 0.9 mg/dL (0.55-1.3)
[2024-05-28 19:06] LABS: BILIRUBIN,TOTAL 0.2 mg/dL (0.2-1); TOT PROT 7.3 g/dl (6.4-8.2)
[2024-05-28 22:24] VITALS: BMI 21.9
[2024-05-29 02:04] VITALS: PULSE 64
[2024-05-29 06:05] VITALS: BP 104/69; TEMP 98.6
[2024-05-29] MEDS ORDERED: NICOTINE POLACRILEX 4 MG GUM BUC PRN (08:16)
[2024-05-29] MEDS ORDERED: VANCOMYCIN/WATER FOR INJ (PEG) 1,000 MG/200 ML BAG IVPB SCH (09:00)
[2024-05-29] MEDS ORDERED: VANCOMYCIN 1,000 MG in DEXTROSE 5%-WATER - 250 ML IVPB SCH (09:00)
[2024-05-29] MEDS ORDERED: cloNIDine HCL 0.1 MG TABLET PO PRN (09:01)
[2024-05-29] MEDS ORDERED: diazePAM 5 MG TABLET PO PRN (09:01)
[2024-05-29] MEDS: LACTATED RINGERS SOLUTION 1,000 ML/1,000 ML INFUS.BAG IV SCH (09:53)
[2024-05-29] MEDS: LACTOBACILLUS ACIDOPHILUS 1 TABLET PO SCH (09:53)
[2024-05-29] MEDS: CLINDAMYCIN 600MG PREMIX IVPB 600 MG/50 ML BAG IVPB SCH (09:54)
[2024-05-29] MEDS ORDERED: DOXYCYCLINE INJECTION 100 MG in DEXTROSE 5%-WATER 100 ML IVPB SCH (10:00)
[2024-05-29] MEDS ORDERED: CLINDAMYCIN 600MG PREMIX IVPB 600 MG/50 ML BAG IVPB SCH (10:00)
[2024-05-29] MEDS ORDERED: VANCOMYCIN 1,000 MG in DEXTROSE 5%-WATER - 250 ML IVPB ONE (10:30)
[2024-05-29 10:31] LABS: URINE AMPHETAMINES NEGATIVE (NEGATIVE)
[2024-05-29 10:32] LABS: METHADONE, UR NEGATIVE (NEGATIVE); PHENCYCLIDINE,URINE NEGATIVE (NEGATIVE)
[2024-05-29 10:38] LABS: COCAINE, UR POSITIVE (NEGATIVE); OPIATES, URI POSITIVE (NEGATIVE); URINE BARBITURATES NEGATIVE (NEGATIVE); URINE BENZODIAZEPINES POSITIVE (NEGATIVE)
[2024-05-31] MEDS ORDERED: diazePAM 5 MG TABLET PO SCH (06:00)
[2024-06-02] MEDS ORDERED: diazePAM 5 MG TABLET PO ONE (06:00)
[2024-06-02] MEDS ORDERED: methaDONE HCL 10 MG TABLET PO ONE (10:00)
== END 2024-05-29 10:31 | disposition left against medical advice (07) | DRG 383 ==
LOC: JER 17:32 → JERBED 19:08 → J8W 21:41
PROVIDERS: ADMIT Internal Medicine; ATTEND Internal Medicine
DX: L02.415 Cutaneous abscess of right lower limb (principal); F14.20 Cocaine dependence, uncomplicated; B19.20 Unspecified viral hepatitis C without hepatic coma; D64.9 Anemia, unspecified; F11.23 Opioid dependence with withdrawal; F17.210 Nicotine dependence, cigarettes, uncomplicated; F31.81 Bipolar II disorder
CPT/HCPCS: 36415; 80053; 80307; 84703; 85025; 86850; 86900; 86901; 99285-25

== ENCOUNTER 2024-05-29 11:39 | Emergency (ER) | payer OTHER ==
[2024-05-29 11:59] VITALS: BP 114/64; PULSE 78; RESP 17; TEMP 97.4; BMI 23.0
== END 2024-05-29 13:50 | disposition left against medical advice (07) ==
LOC: JER 11:39
DX: Z53.21 Procedure and treatment not carried out due to patient leaving prior to being seen by health care provider (principal)
CPT/HCPCS: 99281-25